=== PATIENT | male | born 1980 | race Caucasian/White ===

== ENCOUNTER → 2020-04-26 08:38 | Outpatient (BNVA) | payer MEDICAID, SELFPAY | PROVIDERS: PCP Family Medicine; Visit Provider Social Worker Clinical | DX: F40.10 Social phobia, unspecified (principal) | CPT/HCPCS: 90834 ==

== ENCOUNTER → 2020-05-10 08:08 | Outpatient (BNVA) | payer MEDICAID, SELFPAY | PROVIDERS: PCP Family Medicine; Visit Provider Social Worker Clinical | DX: F40.10 Social phobia, unspecified (principal) | CPT/HCPCS: 90834 ==

== ENCOUNTER → 2020-05-24 13:02 | Outpatient (BNVA) | payer MEDICAID, SELFPAY | PROVIDERS: PCP Family Medicine; Visit Provider Psychiatry & Neurology Psychiatry | DX: F19.90 Other psychoactive substance use, unspecified, uncomplicated (principal); Z65.3 Problems related to other legal circumstances | CPT/HCPCS: 90792 ==

== ENCOUNTER → 2021-09-13 15:22 | Outpatient (BNVA) | payer MEDICAID, SELFPAY | PROVIDERS: PCP Family Medicine; Visit Provider Nurse Practitioner | DX: Z20.822 Contact with and (suspected) exposure to COVID-19 (principal); R11.2 Nausea with vomiting, unspecified | CPT/HCPCS: 87400; 87426 ==

== ENCOUNTER 2021-09-27 22:20 | Emergency (ER) | payer MEDICAID, SELFPAY ==
--- NOTE | 2021-09-27 22:21 | XRR_ITS ---
PROCEDURE INFORMATION: Exam: XR Chest Exam date and time: 09/27/2021 10:21 PM Age: 41 years old Clinical indication: Shortness of breath; Chest pressure; Patient HX: C/O chest pain with SOB. ; Additional info: Cp TECHNIQUE: Imaging protocol: XR of the chest. Views: 1 view. COMPARISON: No relevant prior studies available. FINDINGS: Lungs: Moderately hyperaerated lungs consistent with deep inspiratory effort vs significant reactive airway disease vs moderate COPD . Pleural spaces: Unremarkable. No pleural effusion. No pneumothorax. Heart/Mediastinum: Unremarkable. No cardiomegaly. Bones/joints: Unremarkable. XR/XR chest 1V portable [id number] IMPRESSION: Moderately hyperaerated lungs consistent with deep inspiratory effort vs significant reactive airway disease vs moderate COPD .
--- NOTE | 2021-09-27 22:22 | ECG_ITS ---
[facility] Test Date: 2021-09-27 Pat Name: Mart Estes Department: Room: Gender: Male Director Of Graduate Admissions: : 1980 Requested By: Georgette Bower Order Number: [id number] Geronimo MD: Karla Majano M.D. Measurements Intervals [place] Rate: 80 P: 85 SC: 137 QRS: 83 QRSD: 102 T: 62 QT: 338 QTc: 392 Interpretive Statements SINUS RHYTHM WITH MARKED SINUS ARRHYTHMIA RIGHT ATRIAL ENLARGEMENT [0.3mV P-WAVE] INCOMPLETE RIGHT BUNDLE BRANCH BLOCK [90+ ms QRS DURATION, TERMINAL R IN V1/V2, 40+ ms S IN I/aVL/V4/V5/V6] No previous ECG available for comparison Electronically Signed On 09-28-2021 16:40:29 BALANCE STAFF STAKER by Karla Majano M.D. [id number]
[2021-09-27 22:31] VITALS: BP 114/85; PULSE 86; RESP 18; TEMP 36.5; O2SAT 98; BMI 20.9
[2021-09-27 22:51] LABS: Basophils # 0.1 10^3/uL (0.0-0.1); Basophils % 0.7 %; Eosinophils # 0.1 10^3/uL (0.0-0.8); Eosinophils % 0.7 %; Hematocrit 40.6 % (42.0-52.0); Hemoglobin 14.7 g/dL (11.7-16.6); Lymphocytes # 2.6 10^3/uL (0.8-4.8); Lymphocytes % 25.7 %; Mean Corpuscular HGB Conc 36.2 g/dL (30.0-36.0); Mean Corpuscular Hemoglobin 31.9 pg (28.0-34.0); Mean Corpuscular Volume 88.1 fl (80-94); Monocytes # 0.7 10^3/uL (0.2-0.9); Monocytes % 6.3 %; Neutrophils % 66.3 %; Nucleated Red Blood Cells % 0 %; Platelet Count 300 10^3/cmm (130-400); Red Blood Count 4.61 10^6/uL (4.1-5.3); Red Cell Distribution Width 12.8 % (12.1-15.1); White Blood Count 10.3 10^3/uL (4.0-10.0)
[2021-09-27 23:10] LABS: Alanine Aminotransferase 10 U/L (0-41); Albumin Level 4.9 g/dL (3.5-5.2); Alkaline Phosphatase 75 IU/L (40-130); Anion Gap 19.3 (5-19); Aspartate Amino Transferase 17 U/L (0-40); Blood Urea Nitrogen 14 mg/dL (6-20); Calcium 9.2 mg/dL (8.5-10.5); Carbon Dioxide 20 mmol/L (22-29); Chloride 105 mmol/L (98-107); Globulin 2.6 g/dL (1.3-4.6); Glomerular Filtration Rate 107.6 mL/min (90-130); Glucose 93 mg/dL (65-115); Osmolality Calculated 290 mOsm/kg (285-295); Potassium 4.3 mmol/L (3.5-5.1); Sodium 140 mmol/L (136-145); Total Bilirubin 0.3 mg/dL (0.15-1.2); Total Protein 7.5 g/dL (6.6-8.7)
[2021-09-27 23:12] LABS: Troponin(5th) Baseline 6 ng/L (0-15)
--- NOTE | 2021-09-27 23:26 | W.ED.CHESTPA ---
HPI - Chest Pain General: Chief Complaint: Chest Pain Stated Complaint: chest pains, sob Time Seen by Provider: 09/27/21 22:25 Source: patient Mode of arrival: ambulatory Limitations: no limitations History of Present Illness: HPI narrative: 41-year-old male states that he has been having chest pain since 7 PM he states he has been having dental issues had an abscess pop today started on clindamycin and states started having some sharp chest pain this evening he states he has had pain like this previously denies any shortness of breath denies any vomiting or diarrhea he denies any worsening provider states pain is currently a 2 out of 10. Associated symptoms: Deny abdominal pain, dyspnea, fever(s), nausea or vomiting Review of Systems Const: Denies: fever(s), chills, body aches or change in appetite Eyes: Denies: blurry vision or eye discomfort ENMT: Denies: throat pain or dental pain Card: Reports: chest pain Resp: Denies: dyspnea GI: Denies: abdominal pain, nausea, vomiting or diarrhea : Denies: dysuria Musc: Denies: neck pain or back pain Skin/Breast: Denies: rash Neuro: Denies: headache(s) Psych: Denies: depression Wander/Lymph: Denies: easy bruising All/Imm: Denies: urticaria PFSH ED PFSH: Medical History Lost custody of children Substance use disorder Social History Smoking and tobacco status: current every day smoker Current gender identity: Male Physical Exam Const: COMMON NORMALS: no acute distress, patient oriented x3 and healthy appearing HENMT: COMMON NORMALS: normocephalic and atraumatic HEAD & SCALP: normocephalic and atraumatic OTHER: Very poor dentition no abscess or trismus noted Eye: COMMON NORMALS: Equal, round and reactive pupils present and EOMs intact bilaterally PUPIL: Yes Equal, round and reactive pupils present Neck/C-Spine: COMMON NORMALS: full ROM and supple Chest: COMMONS NORMALS: normal inspection of the chest and normal palpation of entire chest wall Resp: COMMON NORMALS: normal respiratory effort, No retractions, No use of accessory muscles and clear to auscultation bilaterally AUSCULTATION: clear to auscultation bilaterally Cardio: COMMON NORMALS: regular rate, regular rhythm and No murmurs present (Cardio) RATE: regular rate RHYTHM: regular rhythm GI: COMMON NORMALS: Normal to inspection, nondistended, normoactive bowel sounds present, Soft to palpation, non-tender and no masses PALPATION: Yes Soft to palpation Extremity: COMMON NORMALS: normal to inspection and full ROM Neuro: COMMON NORMALS: patient oriented x3, moves all extremities and no focal motor deficits Psych: COMMON NORMALS: mental status grossly normal, Normal thought process present and cooperative THOUGHT PROCESS: Normal thought process present Skin: COMMON NORMALS: no rashes or lesions noted and no wounds GENERAL SKIN EXAM: no rashes or lesions noted Course Vital Signs: Vital signs: Vital Signs Temperature 97.7 F 09/27/21 22:31 Pulse Rate 86 09/27/21 22:31 Respiratory Rate 18 09/27/21 22:31 Blood Pressure 114/85 09/27/21 22:31 Pulse Oximetry 98 09/27/21 22:31 MDM - Chest Pain MDM Narrative: Medical decision making narrative: Patient presents with chest pains very atypical in nature troponin blood work chest x-ray are all normal he has no signs of pulmonary embolism no signs of acute coronary syndrome he is to continue his antibiotics for his dental infection follow-up with a dentist he is stable for discharge and return if worsening he understands and agrees to plan. Lab Data: Labs: Lab Results 09/27/21 09/27/21 09/27/21 22:43 22:43 22:43 WBC 10.3 10^3/uL H 10 ^3/uL (4.0-10.0) RBC 4.61 10^6/uL 10^6 /uL (4.1-5.3) Hgb 14.7 g/dL g/dL (11.7-16.6) Hct 40.6 % L % (42.0-52.0) MCV 88.1 fl fl (80-94) MCH 31.9 pg pg (28.0-34.0) MCHC 36.2 g/dL H g/dL (30.0-36.0) RDW 12.8 % % (12.1-15.1) Plt Count 300 10^3/cmm 10^3 /cmm (130-400) MPV 10.0 fL fL (7.4-10.4) Neut % (Auto) 66.3 % % Lymph % (Auto) 25.7 % % [place] % (Auto) 6.3 % % Eos % (Auto) 0.7 % % Baso % (Auto) 0.7 % % Neut # (Auto) 6.80 10^3/uL 10^3 /uL (1.8-7.7) Lymph # (Auto) 2.6 10^3/uL 10^3/ uL (0.8-4.8) [place] # (Auto) 0.7 10^3/uL 10^3/ uL (0.2-0.9) Eos # (Auto) 0.1 10^3/uL 10^3/ uL (0.0-0.8) Baso # (Auto) 0.1 10^3/uL 10^3/ uL (0.0-0.1) Nucleated RBC % (a uto) 0 % % Nucleated RBCs # 0.0 /100WBC /100W BC Sodium 140 mmol/L mmol/L (136-145) Potassium 4.3 mmol/L mmol/L (3.5-5.1) Chloride 105 mmol/L mmol/L (98-107) Carbon Dioxide 20 mmol/L L mmol/ L (22-29) Anion Gap 19.3 H (5-19) BUN 14 mg/dL mg/dL (6-20) Creatinine 0.8 mg/dL mg/dL (0.7-1.2) GFR Calculation 107.6 mL/min mL/m in (90-130) Glucose 93 mg/dL mg/dL (65-115) Calculated Osmolal ity 290 mOsm/kg mOsm/ kg (285-295) Calcium 9.2 mg/dL mg/dL (8.5-10.5) Total Bilirubin 0.3 mg/dL mg/dL (0.15-1.2) AST 17 U/L U/L (0-40) ALT 10 U/L U/L (0-41) Alkaline Phosphata se 75 IU/L IU/L (40-130) Troponin T Baselin e 6 ng/L ng/L (0-15) Total Protein 7.5 g/dL g/dL (6.6-8.7) Albumin 4.9 g/dL g/dL (3.5-5.2) Globulin 2.6 g/dL g/dL (1.3-4.6) Imaging Data^: CXR: Attestation: I personally reviewed and interpreted this imaging study as follows: My impression: no acute abnormality EKG Data^: EKG 1: Attestation: I personally reviewed and interpreted this EKG as follows: EKG interpretation date: 10/26/21 EKG interpretation time: 22:32 Interpretation: nsr hr [address] or t wave abnormalities qrs 102 qtc 375 Discharge Plan Discharge Patient Disposition: Home Clinical Impression: Chest pain Qualifiers: Chest pain type: unspecified Qualified Code(s): R07.9 - Chest pain, unspecified Condition: Stable Prescriptions: No Action No Known Home Medications RF: 0 clindamycin HCl 300 mg capsule 300 mg PO TID 7 Days Qty: 21 RF: 0 Discharge Orders: Discharge ED (Routine); Ordered 09/27/21 Ordered By: Georgette Bower Discharge Diet: Advance as tolerated Discharge Activity: Resume usual activity Patient Instructions: Chest Pain (ED) Coding Level of Care Code ED Referral And Information Aide for Chg Fwd Exam Comprehensive
[2021-09-27 23:44] VITALS: BP 117/82; PULSE 78; RESP 18; O2SAT 99
== END 2021-09-27 23:45 | disposition home or self-care (01) ==
PROVIDERS: Emergency Provider Emergency Medicine
DX: R07.9 Chest pain, unspecified (principal); F17.210 Nicotine dependence, cigarettes, uncomplicated
CPT/HCPCS: 71045; 80053; 84484; 85025; 93005; 99282

== ENCOUNTER → 2022-07-24 14:51 | Outpatient (BNVA) | payer MEDICAID, SELFPAY | PROVIDERS: Visit Provider Nurse Practitioner Family | DX: M70.41 Prepatellar bursitis, right knee (principal) | CPT/HCPCS: 73560; 73565 ==